=== PATIENT | female | born 1980 | race Caucasian/White ===

== ENCOUNTER 2020-12-15 12:27 | Emergency (ER) | payer MEDICAID, SELFPAY ==
[2020-12-15 12:55] VITALS: BP 120/60; BP 120/85; PULSE 60; PULSE 65; RESP 12; TEMP 36.3; O2SAT 100; BMI 21.7
--- NOTE | 2020-12-15 13:05 | PC.NURSE ---
pt camilo zamora
--- NOTE | 2020-12-15 14:35 | ED_ITS ---
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 Pain radiates to low back. Started menses last evening. not sexually active, s/p tubal ligation. +anxiety, ran out of all her medications, feels panicky. Related Data Previous Rx's Medication Instructions Recorded ondansetron 4 mg PO Q6H PRN #10 tab 12/15/20 Allergies Allergy/AdvReac Type Severity Reaction Status Date / Time ibuprofen Allergy Hives Verified 12/15/20 13:00 Review of Systems Review of Systems Yes all other systems are reviewed and are negative Constitutional: Reports no additional constitutional complaints, Denies body ache(s), Denies chills, Denies fever(s), Denies headache(s) and Denies weakness Eyes: Reports no additional eye complaints and Denies change in vision Reports system reviewed and no additional complaints, except as documented, Denies dizziness, Denies headache(s), Denies nasal congestion, Denies nasal discharge and Denies neck pain Cardiovascular: Reports no additional cardiovascular complaints, Denies chest pain, Denies leg edema and Denies dyspnea Respiratory: Reports no additional respiratory complaints, Denies cough and Denies dyspnea Gastrointestinal: Reports no additional gastrointestinal complaints, Reports abdominal pain, Reports diarrhea, Reports nausea and Reports vomiting Genitourinary: Reports no additional female genitourinary complaints and Denies urinary incontinence Musculoskeletal: Reports no additional musculoskeletal complaints, Denies back pain, Denies arthralgias, Denies joint swelling, Denies neck pain, Denies numbness and Denies tingling Skin/Breast: Reports system reviewed and no additional complaints, except as docu and Denies rash Reports system reviewed and no additional complaints, except as documented, Denies Abnormal speech present, Denies dizziness, Denies headache(s), Denies numbness, Denies tingling and Denies weakness Physical Exam Vital Signs: Vital Signs: Last Vital Signs Temp 97.4 F 12/15/20 20:00 Pulse 67 12/15/20 20:00 Resp 15 12/15/20 20:00 BP 101/48 L 05/04/21 20:00 Pulse Ox 100 12/15/20 20:00 Body Mass Index 21.7 Const: Other: ++++anxious, rocking back and forth, tearful General: cooperative and anxious Orientation/consciousness: patient oriented x3 Limitations: no limitations HENMT: Head: Yes normal to inspection Ears: hearing grossly normal bilaterally General nose exam: Normal external nose present Face and sinus: Yes normal facial exam Mouth: Normal oral and palatal mucosa present Throat: Yes posterior oropharynx normal Eyes: General: appearance normal, both eyes and all related structures Pupi ls: Equal, round and reactive pupils present Neck: Neck: Yes normal visual inspection Chest: Chest palpation & inspection: normal inspection of the chest Resp: Effort & Inspection: normal respiratory effort Auscultation: clear to auscultation bilaterally Cardio: Rate: regular rate Rhythm: regular rhythm Peripheral pulses: Peripheral pulses 2+ throughout GI: Inspection: Yes normal to inspection Palpation (GI): Soft to palpation and Tenderness to palpation present (GI) (mild diffuse tenderness, no rebound or guarding ) Auscultation: normal bowel sounds Back/Spine/Pelvis: Thoracic/Lumbar Spine: thoracic and lumbar spine normal to inspection Skin: General skin exam: no rashes or lesions noted Neuro: General: patient oriented x3, no focal motor deficits and normal sen sation to monofilament Cranial nerves: Yes Equal, round and reactive pupils present Cognition (Neuro): normal cognition Speech: No Abnormal speech present Gait exam (Neuro): Normal gait present Motor exam (neuro): 5/5 motor strength present throughout Extrem: General: Yes normal to inspection Course Course Course Narrative: 40yo female here with abdominal pain, vomiting, diarrhea since last evening with severe anxiety (ran out of all her medications). On exam has mild diffuse tenderness with no rebound or guarding. HD stable. Will need labs, UA, PIV, NSB, antiemetic and lorazepam. 1800-labs reviewed and unremarkable. Patient is feeling much improved. Denies any pain or nausea. Drinking mack rina with no issues. She refused to give a urine sample while she was here. Plan for discharge home. Reviewed worrisome signs symptoms when to return to the emergency department. Comfortable discharge home. MDM - Abdominal Pain Differential Diagnosis Differential diagnosis: Likely gastroenteritis, gastritis and pancreatitis Medical Records Attestation: I reviewed the patient's medical records. Lab Data Attestation: I reviewed the patient's lab results. Result diagrams: 12/15/20 15:29 12/15/20 15:29 Labs: Lab Results 12/15/20 12/15/20 12/15/20 Range/Units 15:29 15:29 19:00 WBC 8.4 (4.8-10.8) X10*3/uL RBC 4.13 L (4.20-5.50) X10*6/uL Hgb 13.1 (12.0-16.0) g/dl Hct 39.6 (37-47) % MCV 95.9 (80-98) fL MCH 31.7 (27.0-33.0) pg MCHC 33.1 (31.0-35.0) g/dl RDW 12.9 (11.0-16.0) % Plt Count 288 (160-400) X10*3/uL MPV 9.2 L (9.4-12.3) fL Immature Gran % (Auto) 0.4 (0.0-0.4) % Neut % (Auto) 90.7 H (45-73) % Lymph % (Auto) 7.5 L (20-40) % [place] % (Auto) 1.3 L (2-11) % Eos % (Auto) 0.0 (0-4) % Baso % (Auto) 0.1 (0-2) % Lymph # (Auto) 0.6 L (1.2-4.9) X10*3/uL [place] # (Auto) 0.1 (0.1-1.2) X10*3/uL Eos # (Auto) 0.0 (0.0-0.4) X10*3/uL Baso # (Auto) 0.0 (0.0-0.2) X10*3/uL Abs Immat Gran (auto) 0.03 (0.00-0.03) X10*3/uL Absolute Neuts (auto) 7.6 (2.0-8.3) X10*3/uL Absolute Nucleated RBC 0.000 (0.0-0.012) X10*3/uL Nucleated RBC % (auto) 0.0 (0.0-0.2) /100WBC Smear Tech's Comments VERIFIED Sodium 139 (135-145) mmol/L Potassium 3.6 (3.3-5.1) mmol/L Chloride 105 (96-108) mmol/L Carbon Dioxide 22 (22-29) mmol/L Anion Gap 16 (12-20) BUN 6 L (9-16) mg/dL Creatinine 0.65 (0.5-1.4) mg/dL Estim Creat Clear Calc 86.8 Estimated GFR > 60 Random Glucose 124 H (60-115) mg/dL Calcium 9.5 (8.4-10.2) mg/dL Magnesium 1.8 (1.6-2.6) mg/dL Total Bilirubin 0.5 (0.0-1.0) mg/dL Direct Bilirubin 0.2 (0.0-0.5) mg/dL AST 18 (5-31) U/L ALT 23 (0-31) U/L Alkaline Phosphatase 58 (39-117) U/L Total Protein 7.7 (6.5-8.0) g/dL Albumin 4.7 (3.5-5.0) g/dL Lipase 18 (8-78) U/L Urine Color YELLOW Urine Appearance CLEAR Urine pH 6.0 (5.0-8.0) Ur Specific [place] 1.025 (1.005-1.025) Urine Protein NEG (NEG-TRACE) MG/DL Urine Glucose (UA) NEG (NEG) MG/DL Urine Ketones 15 (NEG) MG/DL Urine Blood 3+ H (NEG) Urine Nitrite NEG (NEG) Ur Leukocyte Esterase NEG (NEG) Urine RBC 30-49 H (0) /HPF Urine WBC 0-2 (0-4) /HPF Ur Squamous Epith Cells 2+ /LPF Urine Bacteria NONE /LPF Urine Test (NEGATIVE) 12/15/20 Range/Units 19:00 WBC (4.8-10.8) X10*3/uL RBC (4.20-5.50) X10*6/uL Hgb (12.0-16.0) g/dl Hct (37-47) % MCV (80-98) fL MCH (27.0-33.0) pg MCHC (31.0-35.0) g/dl RDW (11.0-16.0) % Plt Count (160-400) X10*3/uL MPV (9.4-12.3) fL Immature Gran % (Auto) (0.0-0.4) % Neut % (Auto) (45-73) % Lymph % (Auto) (20-40) % [place] % (Auto) (2-11) % Eos % (Auto) (0-4) % Baso % (Auto) (0-2) % Lymph # (Auto) (1.2-4.9) X10*3/uL [place] # (Auto) (0.1-1.2) X10*3/uL Eos # (Auto) (0.0-0.4) X10*3/uL Baso # (Auto) (0.0-0.2) X10*3/uL Abs Immat Gran (auto) (0.00-0.03) X10*3/uL Absolute Neuts (auto) (2.0-8.3) X10*3/uL Absolute Nucleated RBC (0.0-0.012) X10*3/uL Nucleated RBC % (auto) (0.0-0.2) /100WBC Smear Tech's Comments Sodium (135-145) mmol/L Potassium (3.3-5.1) mmol/L Chloride (96-108) mmol/L Carbon Dioxide (22-29) mmol/L Anion Gap (12-20) BUN (9-16) mg/dL Creatinine (0.5-1.4) mg/dL Estim Creat Clear Calc Estimated GFR Random Glucose (60-115) mg/dL Calcium (8.4-10.2) mg/dL Magnesium (1.6-2.6) mg/dL Total Bilirubin (0.0-1.0) mg/dL Direct Bilirubin (0.0-0.5) mg/dL AST (5-31) U/L ALT (0-31) U/L Alkaline Phosphatase (39-117) U/L Total Protein (6.5-8.0) g/dL Albumin (3.5-5.0) g/dL Lipase (8-78) U/L Urine Color Urine Appearance Urine pH (5.0-8.0) Ur Specific [place] (1.005-1.025) Urine Protein (NEG-TRACE) MG/DL Urine Glucose (UA) (NEG) MG/DL Urine Ketones (NEG) MG/DL Urine Blood (NEG) Urine Nitrite (NEG) Ur Leukocyte Esterase (NEG) Urine RBC (0) /HPF Urine WBC (0-4) /HPF Ur Squamous Epith Cells /LPF Urine Bacteria /LPF Urine Test NEGATIVE (NEGATIVE) ECG Data Attestation: I personally reviewed and interpreted this ECG as follows: ECG interpretation date: 12/15/20 ECG interpretation time: 15:09 Interpretation: SB with rate 54, normal pr, normal qrs, normal qtc Discharge Plan Discharge Clinical Impression: Gastroenteritis Patient Disposition: Home, Self-Care Instructions: Gastroenteritis (ED) Additional Instructions: Start with clear liquids and then advance her diet as tolerated Prescriptions: New ondansetron 4 mg tablet,disintegrating 4 mg PO Q6H PRN (Reason: nausea and vomiting) Qty: 10 RF: 0 Referrals: Physician,Unknown [Primary Care Provider] - 2 days Interventions: ED Discharge Assessment Last Done: 12/15/20 20:29 Discharge Date/Time: 12/15/20 20:48 Print Language: Croatian [facility] Past Medical History Attestation statement: The following information was validated with the patient. Source: old records reviewed and nursing notes reviewed Medical History Anxiety Depression PTSD (post-traumatic stress disorder) Social History Social History Smoking Status: Current every day smoker Substance Use Type: Marijuana
--- NOTE | 2020-12-15 14:50 | ECG_ITS ---
Test Reason : PALPITATIONS Blood Pressure : / mmHG Vent. Rate : 054 BPM Atrial Rate : 054 BPM P-R Int : 118 ms QRS Dur : 072 ms QT Int : 428 ms P-R-T Axes : 042 078 069 degrees QTc Int : 405 ms Sinus bradycardia Otherwise normal ECG No previous ECGs available Referred By: Katheryn Lee Electronically Signed By:BERTRAND PADGETT
[2020-12-15] MEDS: 0.9 % Sodium Chloride 1,000 ML 999 ML IV (15:33)
[2020-12-15] MEDS: ondansetron HCL 4 MG/2 ML VIAL IVPUSH (15:34)
[2020-12-15] MEDS: LORazepam 2 MG/ML VIAL IVPUSH (15:34)
[2020-12-15] MEDS: Famotidine/PF 20 MG/2 ML VIAL IVPUSH (15:34)
[2020-12-15 15:46] LABS: Basophils Percent Auto 0.1 % (0-2); Hematocrit 39.6 % (37-47); Hemoglobin 13.1 g/dl (12.0-16.0); Imm Gran Abs Auto 0.03 X10*3/uL (0.00-0.03); Imm Gran Pct Auto 0.4 % (0.0-0.4); Lymphocytes Absolute Auto 0.6 X10*3/uL (1.2-4.9); Lymphocytes Percent Auto 7.5 % (20-40); MANUAL DIFF FLAG SCAN; Mean Corpuscular HGB Conc 33.1 g/dl (31.0-35.0); Mean Corpuscular Hemoglobin 31.7 pg (27.0-33.0); Mean Corpuscular Volume 95.9 fL (80-98); Mean Platelet Volume 9.2 fL (9.4-12.3); Monocytes Absolute Auto 0.1 X10*3/uL (0.1-1.2); Monocytes Percent Auto 1.3 % (2-11); Neutrophils Absolute Auto 7.6 X10*3/uL (2.0-8.3); Neutrophils Percent Auto 90.7 % (45-73); Platelet Count 288 X10*3/uL (160-400); Red Blood Count 4.13 X10*6/uL (4.20-5.50); Red Cell Distribution Width 12.9 % (11.0-16.0); SCAN SMEAR FLAG 1; White Blood Count 8.4 X10*3/uL (4.8-10.8)
[2020-12-15 16:17] LABS: Alanine Aminotransferase 23 U/L (0-31); Albumin Level 4.7 g/dL (3.5-5.0); Alkaline Phosphatase 58 U/L (39-117); Anion Gap 16 (12-20); Aspartate Amino Transferase 18 U/L (5-31); Bilirubin Direct 0.2 mg/dL (0.0-0.5); Bilirubin Total 0.5 mg/dL (0.0-1.0); Blood Urea Nitrogen 6 mg/dL (9-16); Calcium 9.5 mg/dL (8.4-10.2); Carbon Dioxide 22 mmol/L (22-29); Chloride 105 mmol/L (96-108); Creatinine Clr Calc Pharmacy 86.8; Estimated Glomerular Filt Rate > 60; Glucose Random 124 mg/dL (60-115); Lipase 18 U/L (8-78); Magnesium 1.8 mg/dL (1.6-2.6); Potassium 3.6 mmol/L (3.3-5.1); Sodium 139 mmol/L (135-145); Total Protein 7.7 g/dL (6.5-8.0)
[2020-12-15 16:25] LABS: SLIDE REVIEW VERIFIED
[2020-12-15] MEDS: Metoclopramide HCl 10 MG/2 ML VIAL IVPUSH (18:58)
[2020-12-15] MEDS: diphenhydrAMINE HCL 50 MG/ML VIAL 25 MG IVPUSH (18:58)
[2020-12-15 19:12] LABS: Glucose Urine UA NEG (NEG); Leukocyte Esterase Urine NEG (NEG); Nitrite Urine NEG (NEG); Specific Gravity - Urine 1.025 (1.005-1.025); Urine Blood 3+ (NEG); Urine Ketones 15 MG/DL (NEG); Urine Protein NEG (NEG-TRACE)
[2020-12-15 19:21] LABS: Appearance Urine CLEAR; Color Urine YELLOW
[2020-12-15 19:22] LABS: Urine Pregnancy NEGATIVE (NEGATIVE)
[2020-12-15 19:23] LABS: UPreg QC Valid YES
[2020-12-15 19:26] LABS: RBC Urine 30-49 /HPF (0); Squamous Epithelial Cell Urine 2+ /LPF; WBC Urine 0-2 /HPF (0-4)
[2020-12-15 20:00] VITALS: BP 101/48; PULSE 67; RESP 15; TEMP 36.3; O2SAT 100
[2020-12-15] MEDS: Magnesium Hydrox/Alum Hydrox 30 ML ORAL.SUSP PO (20:00)
[2020-12-15] MEDS: Lidocaine HCl Viscous 2 % 15 ML SOLUTION MUCOUS MEM (20:00)
--- NOTE | 2020-12-15 20:01 | PC.NURSE ---
Patient medicated with GI coctail late due to patient actively vomiting at time it was scheduled. Patient has not vomiting in approximately 1.5 hours and given per provider.
== END 2020-12-15 20:48 | disposition home or self-care (01) ==
PROVIDERS: Nurse Practitioner Family; Emergency Provider Emergency Medicine
DX: K52.9 Noninfective gastroenteritis and colitis, unspecified (principal); R11.10 Vomiting, unspecified; F41.9 Anxiety disorder, unspecified
CPT/HCPCS: 36415; 80053; 80076; 81001; 81025; 83690; 83735; 85025; 93005; 96361; 96374; 96375; 99284; J1200; J2060; J2405; J2765

== ENCOUNTER 2020-12-16 07:57 | Emergency (ER) | payer MEDICAID, SELFPAY ==
--- NOTE | ~2020-12-16 | US_ITS ---
EXAMINATION: US PELVIS ULTRASOUND CLINICAL INFORMATION: Right suprapubic pain. Age 40. LMP 12/15/2020 COMPARISON: None TECHNIQUE: Ultrasound of the pelvis is performed using both transabdominal and transvaginal transducers along with Doppler. Transvaginal imaging is performed due to inadequate visualization transabdominally. FINDINGS: Uterus: The uterus is anteverted and retroflexed and measures 9.2 x 3.6 x 4.6 cm. The double wall endometrial thickness is 8 mm. The uterus is smooth in contour and has normal myometrial echogenicity. No visible fibroid. There is some small nabothian cysts in the cervix. Adnexa: Both ovaries are visualized. There is normal color flow to the adnexa. There is bilateral low resistance arterial waveforms adnexa and presence of venous flow. There is no ovarian torsion. Right ovary measures 2.3 x 1.5 x 2.1 cm. Left ovary measures 2.8 x 2.3 x 2.4 cm. There is dominant follicle left ovary measuring under 2 cm. No adnexal mass. No pelvic ascites. US/US pelvic ovarian doppler IMPRESSION: 1. Uterus: Anteverted and retroflexed, unremarkable. 2. Adnexa: Unremarkable Doppler. No torsion. Dominant follicle left ovary under 2 cm. No pelvic ascites.
--- NOTE | ~2020-12-16 | US_ITS ---
EXAMINATION: US PELVIS ULTRASOUND CLINICAL INFORMATION: Right suprapubic pain. Age 40. LMP 12/15/2020 COMPARISON: None TECHNIQUE: Ultrasound of the pelvis is performed using both transabdominal and transvaginal transducers along with Doppler. Transvaginal imaging is performed due to inadequate visualization transabdominally. FINDINGS: Uterus: The uterus is anteverted and retroflexed and measures 9.2 x 3.6 x 4.6 cm. The double wall endometrial thickness is 8 mm. The uterus is smooth in contour and has normal myometrial echogenicity. No visible fibroid. There is some small nabothian cysts in the cervix. Adnexa: Both ovaries are visualized. There is normal color flow to the adnexa. There is bilateral low resistance arterial waveforms adnexa and presence of venous flow. There is no ovarian torsion. Right ovary measures 2.3 x 1.5 x 2.1 cm. Left ovary measures 2.8 x 2.3 x 2.4 cm. There is dominant follicle left ovary measuring under 2 cm. No adnexal mass. No pelvic ascites. US/US transvaginal IMPRESSION: 1. Uterus: Anteverted and retroflexed, unremarkable. 2. Adnexa: Unremarkable Doppler. No torsion. Dominant follicle left ovary under 2 cm. No pelvic ascites.
--- NOTE | ~2020-12-16 | US_ITS ---
EXAMINATION: US PELVIS ULTRASOUND CLINICAL INFORMATION: Right suprapubic pain. Age 40. LMP 12/15/2020 COMPARISON: None TECHNIQUE: Ultrasound of the pelvis is performed using both transabdominal and transvaginal transducers along with Doppler. Transvaginal imaging is performed due to inadequate visualization transabdominally. FINDINGS: Uterus: The uterus is anteverted and retroflexed and measures 9.2 x 3.6 x 4.6 cm. The double wall endometrial thickness is 8 mm. The uterus is smooth in contour and has normal myometrial echogenicity. No visible fibroid. There is some small nabothian cysts in the cervix. Adnexa: Both ovaries are visualized. There is normal color flow to the adnexa. There is bilateral low resistance arterial waveforms adnexa and presence of venous flow. There is no ovarian torsion. Right ovary measures 2.3 x 1.5 x 2.1 cm. Left ovary measures 2.8 x 2.3 x 2.4 cm. There is dominant follicle left ovary measuring under 2 cm. No adnexal mass. No pelvic ascites. US/US pelvic complete IMPRESSION: 1. Uterus: Anteverted and retroflexed, unremarkable. 2. Adnexa: Unremarkable Doppler. No torsion. Dominant follicle left ovary under 2 cm. No pelvic ascites.
[2020-12-16 08:10] VITALS: BP 91/71; PULSE 67; RESP 16; TEMP 36.9; O2SAT 97; BMI 28.3
[2020-12-16] MEDS: ondansetron HCL 4 MG/2 ML VIAL IVPUSH (10:08)
[2020-12-16] MEDS: 0.9 % Sodium Chloride 1,000 ML 999 ML IVCONT (10:08)
[2020-12-16 10:10] LABS: Basophils Percent Auto 0.1 % (0-2); MANUAL DIFF FLAG SCAN; Mean Corpuscular Volume 95.7 fL (80-98); PLT CLUMP 1; SCAN SMEAR FLAG 1
[2020-12-16 10:12] LABS: Eosinophils Percent Auto 0.1 % (0-4); Hematocrit 39.8 % (37-47); Hemoglobin 13.3 g/dl (12.0-16.0); Imm Gran Abs Auto 0.04 X10*3/uL (0.00-0.03); Imm Gran Pct Auto 0.4 % (0.0-0.4); Lymphocytes Absolute Auto 1.5 X10*3/uL (1.2-4.9); Lymphocytes Percent Auto 13.8 % (20-40); Mean Corpuscular HGB Conc 33.4 g/dl (31.0-35.0); Mean Platelet Volume 10.6 fL (9.4-12.3); Monocytes Absolute Auto 0.6 X10*3/uL (0.1-1.2); Monocytes Percent Auto 5.4 % (2-11); Neutrophils Absolute Auto 8.5 X10*3/uL (2.0-8.3); Neutrophils Percent Auto 80.2 % (45-73); Red Blood Count 4.16 X10*6/uL (4.20-5.50); Red Cell Distribution Width 13.2 % (11.0-16.0); White Blood Count 10.6 X10*3/uL (4.8-10.8)
[2020-12-16] MEDS: LORazepam 1 MG TABLET PO (10:30)
[2020-12-16 10:37] LABS: Platelet Count 223 X10*3/uL (160-400)
--- NOTE | 2020-12-16 10:56 | ED.NAVMDI ---
HPI - Nausea/Vomiting/Diarrhea General Chief complaint: Nausea/Vomiting/Diarrhea <LALITA Tian Last Filed: 12/16/20 12:44> Stated complaint: vomiting, abd pain <LALITA Tian Last Filed: 12/16/20 12:44> Time Seen by Provider: 12/16/20 08:19 <LALITA Tian Last Filed: 12/16/20 12:44> Source: patient <LALITA Tian Last Filed: 12/16/20 12:44> Mode of arrival: ambulatory <LALITA Tian Last Filed: 12/16/20 12:44> History of Present Illness HPI Narrative: 40-year-old female with a past medical history of anxiety, depression, PTSD, ovarian cysts, presenting to the ED complaining of diffuse abdominal pain, nausea, vomiting, diarrhea, and increased anxiety. Patient was seen and treated in the ED yesterday for similar complaints and diagnosed with gastroenteritis. Patient also reports vaginal bleeding, admits began menses a couple days ago. Denies being sexually active or having vaginal discharge. Denies fever, chills, hematemesis, bloody diarrhea, dysuria, recent antibiotic use or travel <LALITA Tian Last Filed: 12/16/20 12:44> MD elicited complaint: nausea, vomiting, diarrhea and abdominal pain <LALITA Tian Last Filed: 12/16/20 12:44> Related Data Home medications: Previous Rx's Medication Instructions Recorded ondansetron 4 mg PO Q6H PRN #10 tab 12/15/20 metoclopramide HCl [Reglan] 10 mg PO Q6H PRN #10 tab 12/16/20 metoclopramide HCl [Reglan] 10 mg PO Q6H PRN #10 tab 01/07/21 ondansetron 4 mg PO Q6H PRN #10 tab 01/07/21 sucralfate [Carafate] 1 g PO BID #20 tab 01/07/21 <LALITA Tian Last Filed: 12/16/20 12:44> Allergies/Adverse reactions: Allergies Allergy/AdvReac Type Severity Reaction Status Date / Time ibuprofen Allergy Hives Verified 12/15/20 13:00 <ALLITA Tian Last Filed: 12/16/20 12:44> Review of Systems Review of Systems: Constitutional: No Fever, No Chills, No Night Sweats Cardiovascular: No Chest Pain, No SOB, +Palpitations Respiratory: No Cough, No Sputum Gastrointestinal: + Nausea, + Vomiting, + Diarrhea, No Constipation, + Abdominal pain, No Hematochezia, No Melena Genitourinary: + irregular bleeding, No Dysuria, No Urinary Frequency, No Hematuria, No vaginal discharge, No Flank Pain Musculoskeletal: No joint pain, No Myalgias Skin: No Skin Lesions, No rash Neuro: No Weakness, No Numbness, No Paresthesias, No Headache <LALITA Tian - Last Filed: 12/16/20 12:44> Yes all other systems are reviewed and are negative <LALITA Tian - Last Filed: 12/16/20 12:44> [facility] Past Medical History Attestation statement: The following information was validated with the patient. <LALITA Tian - Last Filed: 12/16/20 12:44> Medical History: Medical History Anxiety delivery delivered Depression Gastritis PTSD (post-traumatic stress disorder) <LALITA Tian - Last Filed: 12/16/20 12:44> Social History Social History: Social History Alcohol intake: never Patient Tobacco Use Status: Current everyday Tobacco user Smoked in Last 30 Days: Yes Use of substances other than those prescribed or required for medical reasons: No Substance Use Type: Marijuana Advance Directives: Yes Advance Directives Information Provided: Yes Advance Directives on File: No Patient : No <LALITA Tian - Last Filed: 12/16/20 12:44> Physical Exam Vital Signs: Vital Signs: Last Vital Signs Temp 98.5 F 12/16/20 08:10 Pulse 63 12/16/20 11:18 Resp 18 12/16/20 11:18 BP 121/70 12/16/20 11:18 Pulse Ox 98 12/16/20 11:18 Body Mass Index 28.3 <LALITA Tian - Last Filed: 12/16/20 12:44> Vital Signs: Last Vital Signs Temp 98.5 F 12/16/20 08:10 Pulse 63 12/16/20 11:18 Resp 18 12/16/20 11:18 BP 121/70 12/16/20 11:18 Pulse Ox 98 12/16/20 11:18 Body Mass Index 28.3 <Ector Aguirre MD - Last Filed: 01/14/21 14:47> Const: Other: tearful <Arlette Loo PA - Last Filed: 12/16/20 12:44> General: cooperative, healthy appearing, no acute distress and anxious <Arlette Loo PA - Last Filed: 12/16/20 12:44> Orientation/consciousness: patient oriented x3 <Arlette Loo PA - Last Filed: 12/16/20 12:44> Limitations: no limitations <Arlette Loo PA - Last Filed: 12/16/20 12:44> HENMT: Head: Yes normal to inspection <Arlette Loo PA - Last Filed: 12/16/20 12:44> Ears: hearing grossly normal bilaterally <Arlette Loo PA - Last Filed: 12/16/20 12:44> General nose exam: Normal external nose present <Arlette Loo PA - Last Filed: 12/16/20 12:44> Face and sinus: Yes normal facial exam <Arlette Loo PA - Last Filed: 12/16/20 12:44> Eyes: General: appearance normal, both eyes and all related structures <Arlette Loo PA - Last Filed: 12/16/20 12:44> EOM: EOMs intact bilaterally <Arlette Loo PA - Last Filed: 12/16/20 12:44> Neck: Neck: Yes normal visual inspection and Yes no lymphadenopathy <Arlette Loo PA - Last Filed: 12/16/20 12:44> Resp: Effort & Inspection: normal respiratory effort <Arlette Loo PA - Last Filed: 12/16/20 12:44> Cardio: Rate: regular rate <Arlette Loo PA - Last Filed: 12/16/20 12:44> GI: Inspection: Yes normal to inspection <Arlette Loo PA - Last Filed: 12/16/20 12:44> Palpation (GI): Soft to palpation, Tenderness to palpation present (GI) suprapubicly (>R), no guarding and not rigid <LALITA Tian - Last Filed: 12/16/20 12:44> : General: Yes no CVA tenderness <LALITA Tian - Last Filed: 12/16/20 12:44> OB/external & speculum: Deferred OB/external & speculum exam <LALITA Tian - Last Filed: 12/16/20 12:44> Back/Spine/Pelvis: Back: no CVA tenderness <LALITA Tian Last Filed: 12/16/20 12:44> Skin: Rashes: no rashes <LALITA Tian - Last Filed: 12/16/20 12:44> Wounds: no wounds <LALITA Tian Last Filed: 12/16/20 12:44> Neuro: General: patient oriented x3 <LALITA Tian - Last Filed: 12/16/20 12:44> Gait exam (Neuro): Normal gait present <LALITA Tian Last Filed: 12/16/20 12:44> Extrem: General: Yes normal to inspection <LALITA Tian Last Filed: 12/16/20 12:44> Course Course Course Narrative: -no leukocytosis. CMP hemolyzed US pelvic complete IMPRESSION: 1. Uterus: Anteverted and retroflexed, unremarkable. 2. Adnexa: Unremarkable Doppler. No torsion. Dominant follicle left ovary under 2 cm. No pelvic ascites. -daughter at bedside reports patient with similar menstrual cramps/sx in the past. Patient tolerated full cup of water in the ED without difficulty/nausea or vomiting, is currently talking on the phone with boyfriend laughing. -1230--potassium low at 3.1 > p.o. repletion ordered, labs otherwise reassuring. Results discussed with patient including worrisome signs and symptoms and strict return precautions. Patient requesting to shower. Discussed the need to stay hydrated at home and have close PCP follow-up <LALITA Tian - Last Filed: 12/16/20 12:44> I have reviewed the chart <Ector Aguirre MD - Last Filed: 01/14/21 14:47> MDM - Nausea/Vomiting/Diarrhea MDM Narrative Medical decision making narrative: 40-year-old female with a past medical history of anxiety, depression, PTSD, ovarian cysts, presenting to the ED complaining of diffuse abdominal pain, nausea, vomiting, diarrhea, and increased anxiety. Patient also reports vaginal bleeding, currently on menses. Patient was seen and treated in the ED yesterday for similar complaints diagnosed with gastroenteritis, is now presenting to ED with daughter that has similar complaints. This is likely continuous gastroenteritis/food poisoning, however patient with more localized suprapubic/right-sided suprapubic tenderness. Concern for menstrual cramping/ovarian cyst/torsion vs UTI. Lower concern for appendicitis secondary location of tenderness/other confounding symptoms and daughter same symptoms. Unlikely diverticulitis or renal stone Plan: Labs, UA, pelvic ultrasound, IVF, symptomatic treatment, reassess <LALITA Tian - Last Filed: 12/16/20 12:44> Medical Records Attestation: I reviewed the patient's medical records. <LALITA Tian - Last Filed: 12/16/20 12:44> Lab Data Attestation: I reviewed the patient's lab results. <LALITA Tian - Last Filed: 12/16/20 12:44> Result diagrams: : 12/16/20 10:03 12/16/20 11:10 <LALITA Tian - Last Filed: 12/16/20 12:44> Labs: Lab Results 12/16/20 12/16/20 12/16/20 Range/Units 10:03 10:03 11:10 WBC 10.6 (4.8-10.8) X10*3/uL RBC 4.16 L (4.20-5.50) X10*6/uL Hgb 13.3 (12.0-16.0) g/dl Hct 39.8 (37-47) % MCV 95.7 (80-98) fL MCH 32.0 (27.0-33.0) pg MCHC 33.4 (31.0-35.0) g/dl RDW 13.2 (11.0-16.0) % Plt Count 223 (160-400) X10*3/uL MPV 10.6 (9.4-12.3) fL Immature Gran % (Auto) 0.4 (0.0-0.4) % Neut % (Auto) 80.2 H (45-73) % Lymph % (Auto) 13.8 L (20-40) % Sherman % (Auto) 5.4 (2-11) % Eos % (Auto) 0.1 (0-4) % Baso % (Auto) 0.1 (0-2) % Lymph # (Auto) 1.5 (1.2-4.9) X10*3/uL Sherman # (Auto) 0.6 (0.1-1.2) X10*3/uL Eos # (Auto) 0.0 (0.0-0.4) X10*3/uL Baso # (Auto) 0.0 (0.0-0.2) X10*3/uL Abs Immat Gran (auto) 0.04 H (0.00-0.03) X10*3/uL Absolute Neuts (auto) 8.5 H (2.0-8.3) X10*3/uL Absolute Nucleated RBC 0.000 (0.0-0.012) X10*3/uL Nucleated RBC % (auto) 0.0 (0.0-0.2) /100WBC Smear Tech's Comments VERIFIED Hold Blue Top SEE NOTE Sodium 138 (135-145) mmol/L Potassium 3.1 L (3.3-5.1) mmol/L Chloride 108 (96-108) mmol/L Carbon Dioxide 19 L (22-29) mmol/L Anion Gap 14 (12-20) BUN 5 L (9-16) mg/dL Creatinine 0.60 (0.5-1.4) mg/dL Estim Creat Clear Calc 109.9 Estimated GFR > 60 Random Glucose 98 (60-115) mg/dL Calcium 8.2 L D (8.4-10.2) mg/dL Magnesium 2.0 (1.6-2.6) mg/dL Total Bilirubin 0.5 (0.0-1.0) mg/dL Direct Bilirubin 0.2 (0.0-0.5) mg/dL AST 16 (5-31) U/L ALT 19 (0-31) U/L Alkaline Phosphatase 48 (39-117) U/L Total Protein 6.3 L (6.5-8.0) g/dL Albumin 3.9 (3.5-5.0) g/dL Lipase 21 (8-78) U/L Urine Color Urine Appearance Urine pH (5.0-8.0) Ur Specific [place] (1.005-1.025) Urine Protein (NEG-TRACE) MG/DL Urine Glucose (UA) (NEG) MG/DL Urine Ketones (NEG) MG/DL Urine Blood (NEG) Urine Nitrite (NEG) Ur Leukocyte Esterase (NEG) Urine RBC (0) /HPF Urine WBC (0-4) /HPF Ur Squamous Epith Cells /LPF Urine Bacteria /LPF Urine Mucus /LPF Urine Test (NEGATIVE) 12/16/20 12/16/20 Range/Units 11:37 11:37 WBC (4.8-10.8) X10*3/uL RBC (4.20-5.50) X10*6/uL Hgb (12.0-16.0) g/dl Hct (37-47) % MCV (80-98) fL MCH (27.0-33.0) pg MCHC (31.0-35.0) g/dl RDW (11.0-16.0) % Plt Count (160-400) X10*3/uL MPV (9.4-12.3) fL Immature Gran % (Auto) (0.0-0.4) % Neut % (Auto) (45-73) % Lymph % (Auto) (20-40) % Sherman % (Auto) (2-11) % Eos % (Auto) (0-4) % Baso % (Auto) (0-2) % Lymph # (Auto) (1.2-4.9) X10*3/uL Sherman # (Auto) (0.1-1.2) X10*3/uL Eos # (Auto) (0.0-0.4) X10*3/uL Baso # (Auto) (0.0-0.2) X10*3/uL Abs Immat Gran (auto) (0.00-0.03) X10*3/uL Absolute Neuts (auto) (2.0-8.3) X10*3/uL Absolute Nucleated RBC (0.0-0.012) X10*3/uL Nucleated RBC % (auto) (0.0-0.2) /100WBC Smear Tech's Comments Hold Blue Top Sodium (135-145) mmol/L Potassium (3.3-5.1) mmol/L Chloride (96-108) mmol/L Carbon Dioxide (22-29) mmol/L Anion Gap (12-20) BUN (9-16) mg/dL Creatinine (0.5-1.4) mg/dL Estim Creat Clear Calc Estimated GFR Random Glucose (60-115) mg/dL Calcium (8.4-10.2) mg/dL Magnesium (1.6-2.6) mg/dL Total Bilirubin (0.0-1.0) mg/dL Direct Bilirubin (0.0-0.5) mg/dL AST (5-31) U/L ALT (0-31) U/L Alkaline Phosphatase (39-117) U/L Total Protein (6.5-8.0) g/dL Albumin (3.5-5.0) g/dL Lipase (8-78) U/L Urine Color YELLOW Urine Appearance CLEAR Urine pH 7.5 (5.0-8.0) Ur Specific [place] 1.025 (1.005-1.025) Urine Protein NEG (NEG-TRACE) MG/DL Urine Glucose (UA) NEG (NEG) MG/DL Urine Ketones 40 (NEG) MG/DL Urine Blood 2+ H (NEG) Urine Nitrite NEG (NEG) Ur Leukocyte Esterase NEG (NEG) Urine RBC 10-14 H (0) /HPF Urine WBC 0 (0-4) /HPF Ur Squamous Epith Cells 1+ /LPF Urine Bacteria NONE /LPF Urine Mucus 2+ /LPF Urine Test NEGATIVE (NEGATIVE) <LALITA Tian - Last Filed: 12/16/20 12:44> Lab Results 12/16/20 12/16/20 12/16/20 Range/Units 10:03 10:03 11:10 WBC 10.6 (4.8-10.8) X10*3/uL RBC 4.16 L (4.20-5.50) X10*6/uL Hgb 13.3 (12.0-16.0) g/dl Hct 39.8 (37-47) % MCV 95.7 (80-98) fL MCH 32.0 (27.0-33.0) pg MCHC 33.4 (31.0-35.0) g/dl RDW 13.2 (11.0-16.0) % Plt Count 223 (160-400) X10*3/uL MPV 10.6 (9.4-12.3) fL Immature Gran % (Auto) 0.4 (0.0-0.4) % Neut % (Auto) 80.2 H (45-73) % Lymph % (Auto) 13.8 L (20-40) % Sherman % (Auto) 5.4 (2-11) % Eos % (Auto) 0.1 (0-4) % Baso % (Auto) 0.1 (0-2) % Lymph # (Auto) 1.5 (1.2-4.9) X10*3/uL Sherman # (Auto) 0.6 (0.1-1.2) X10*3/uL Eos # (Auto) 0.0 (0.0-0.4) X10*3/uL Baso # (Auto) 0.0 (0.0-0.2) X10*3/uL Abs Immat Gran (auto) 0.04 H (0.00-0.03) X10*3/uL Absolute Neuts (auto) 8.5 H (2.0-8.3) X10*3/uL Absolute Nucleated RBC 0.000 (0.0-0.012) X10*3/uL Nucleated RBC % (auto) 0.0 (0.0-0.2) /100WBC Smear Tech's Comments VERIFIED Hold Blue Top SEE NOTE Sodium 138 (135-145) mmol/L Potassium 3.1 L (3.3-5.1) mmol/L Chloride 108 (96-108) mmol/L Carbon Dioxide 19 L (22-29) mmol/L Anion Gap 14 (12-20) BUN 5 L (9-16) mg/dL Creatinine 0.60 (0.5-1.4) mg/dL Estim Creat Clear Calc 109.9 Estimated GFR > 60 Random Glucose 98 (60-115) mg/dL Calcium 8.2 L D (8.4-10.2) mg/dL Magnesium 2.0 (1.6-2.6) mg/dL Total Bilirubin 0.5 (0.0-1.0) mg/dL Direct Bilirubin 0.2 (0.0-0.5) mg/dL AST 16 (5-31) U/L ALT 19 (0-31) U/L Alkaline Phosphatase 48 (39-117) U/L Total Protein 6.3 L (6.5-8.0) g/dL Albumin 3.9 (3.5-5.0) g/dL Lipase 21 (8-78) U/L Urine Color Urine Appearance Urine pH (5.0-8.0) Ur Specific [place] (1.005-1.025) Urine Protein (NEG-TRACE) MG/DL Urine Glucose (UA) (NEG) MG/DL Urine Ketones (NEG) MG/DL Urine Blood (NEG) Urine Nitrite (NEG) Ur Leukocyte Esterase (NEG) Urine RBC (0) /HPF Urine WBC (0-4) /HPF Ur Squamous Epith Cells /LPF Urine Bacteria /LPF Urine Mucus /LPF Urine Test (NEGATIVE) 12/16/20 12/16/20 Range/Units 11:37 11:37 WBC (4.8-10.8) X10*3/uL RBC (4.20-5.50) X10*6/uL Hgb (12.0-16.0) g/dl Hct (37-47) % MCV (80-98) fL MCH (27.0-33.0) pg MCHC (31.0-35.0) g/dl RDW (11.0-16.0) % Plt Count (160-400) X10*3/uL MPV (9.4-12.3) fL Immature Gran % (Auto) (0.0-0.4) % Neut % (Auto) (45-73) % Lymph % (Auto) (20-40) % Sherman % (Auto) (2-11) % Eos % (Auto) (0-4) % Baso % (Auto) (0-2) % Lymph # (Auto) (1.2-4.9) X10*3/uL Sherman # (Auto) (0.1-1.2) X10*3/uL Eos # (Auto) (0.0-0.4) X10*3/uL Baso # (Auto) (0.0-0.2) X10*3/uL Abs Immat Gran (auto) (0.00-0.03) X10*3/uL Absolute Neuts (auto) (2.0-8.3) X10*3/uL Absolute Nucleated RBC (0.0-0.012) X10*3/uL Nucleated RBC % (auto) (0.0-0.2) /100WBC Smear Tech's Comments Hold Blue Top Sodium (135-145) mmol/L Potassium (3.3-5.1) mmol/L Chloride (96-108) mmol/L Carbon Dioxide (22-29) mmol/L Anion Gap (12-20) BUN (9-16) mg/dL Creatinine (0.5-1.4) mg/dL Estim Creat Clear Calc Estimated GFR Random Glucose (60-115) mg/dL Calcium (8.4-10.2) mg/dL Magnesium (1.6-2.6) mg/dL Total Bilirubin (0.0-1.0) mg/dL Direct Bilirubin (0.0-0.5) mg/dL AST (5-31) U/L ALT (0-31) U/L Alkaline Phosphatase (39-117) U/L Total Protein (6.5-8.0) g/dL Albumin (3.5-5.0) g/dL Lipase (8-78) U/L Urine Color YELLOW Urine Appearance CLEAR Urine pH 7.5 (5.0-8.0) Ur Specific [place] 1.025 (1.005-1.025) Urine Protein NEG (NEG-TRACE) MG/DL Urine Glucose (UA) NEG (NEG) MG/DL Urine Ketones 40 (NEG) MG/DL Urine Blood 2+ H (NEG) Urine Nitrite NEG (NEG) Ur Leukocyte Esterase NEG (NEG) Urine RBC 10-14 H (0) /HPF Urine WBC 0 (0-4) /HPF Ur Squamous Epith Cells 1+ /LPF Urine Bacteria NONE /LPF Urine Mucus 2+ /LPF Urine Test NEGATIVE (NEGATIVE) <Ector Aguirre MD - Last Filed: 01/14/21 14:47> Discharge Plan Discharge Clinical Impression: Gastroenteritis, Menstrual cramps <LALITA Tian Last Filed: 12/16/20 12:44> Patient Disposition: Home, Self-Care <LALITA Tian Last Filed: 12/16/20 12:44> Instructions: Dysmenorrhea (ED) <LALITA Tian Last Filed: 12/16/20 12:44> Additional Instructions: Your blood work was reassuring today in the ED, your ultrasound did not show any acute findings. It is more in there staying hydrated at home. Evening continue to take previously prescribed Zofran which is in antinausea medication. If this is not working, Reglan as an additional antinausea medication, take as needed. Follow-up with your doctor. If you are unable to eat or drink, have fever, pain is persistent worsening please return to the ED Cook an?lisis de betty fue reconfortante hoy en el servicio de urgencias, cook ultrasonido no mostr? yolanda?n hallazgo sancho. Es m?s all? mantenerse hidratado en casa. Por la noche contin?e tomando Zofran previamente recetado, que se encuentra en un medicamento contra las n?useas. Si esto no funciona, Reglan griselda medicamento adicional contra las n?useas, t?morgan seg?n sea necesario. Jassi un seguimiento con cook m?dico. Si no puede comer o beber, tiene fiebre, el dolor es persistente y empeora, vuelva al servicio de urgencias. <LALITA Tian - Last Filed: 12/16/20 12:44> Prescriptions: New metoclopramide HCl [Reglan] 10 mg tablet 10 mg PO Q6H PRN (Reason: nausea and vomiting) Qty: 10 RF: 0 No Action ondansetron 4 mg tablet,disintegrating 4 mg PO Q6H PRN (Reason: nausea and vomiting) Qty: 10 RF: 0 ondansetron 4 mg tablet,disintegrating 4 mg PO Q6H PRN (Reason: nausea and vomiting) Qty: 10 RF: 0 metoclopramide HCl [Reglan] 10 mg tablet 10 mg PO Q6H PRN (Reason: nausea and vomiting) Qty: 10 RF: 0 sucralfate [Carafate] 1 gram tablet 1 g PO BID Qty: 20 RF: 0 <LALITA Tian - Last Filed: 12/16/20 12:44> Referrals: [place] [Primary Care Provider] - 2 days <LALITA Tian - Last Filed: 12/16/20 12:44> Interventions: ED Discharge Assessment Last Done: 12/16/20 13:16 <LALITA Tian - Last Filed: 12/16/20 12:44> Discharge Date/Time: 12/16/20 13:18 <LALITA Tian - Last Filed: 12/16/20 12:44> Print Language: Lao <LALITA Tian - Last Filed: 12/16/20 12:44>
[2020-12-16 10:59] LABS: SLIDE REVIEW VERIFIED
[2020-12-16 11:18] VITALS: BP 121/70; PULSE 63; RESP 18; O2SAT 98
[2020-12-16] MEDS: diphenhydrAMINE HCL 50 MG/ML VIAL 25 MG IVPUSH (11:29)
[2020-12-16] MEDS: LORazepam 2 MG/ML VIAL 0.5 MG IVPUSH (11:29)
[2020-12-16] MEDS: Acetaminophen 325 MG TABLET 650 MG PO (11:29)
--- NOTE | 2020-12-16 11:34 | PC.NURSE ---
NO VOMITING NOTED. UP TO BR, URINE OBTAINED. LAUGHING ON PHONE WITH BF.
[2020-12-16 11:45] LABS: Alanine Aminotransferase 19 U/L (0-31); Albumin Level 3.9 g/dL (3.5-5.0); Alkaline Phosphatase 48 U/L (39-117); Anion Gap 14 (12-20); Aspartate Amino Transferase 16 U/L (5-31); Bilirubin Direct 0.2 mg/dL (0.0-0.5); Bilirubin Total 0.5 mg/dL (0.0-1.0); Blood Urea Nitrogen 5 mg/dL (9-16); Calcium 8.2 mg/dL (8.4-10.2); Carbon Dioxide 19 mmol/L (22-29); Chloride 108 mmol/L (96-108); Creatinine Clr Calc Pharmacy 109.9; Estimated Glomerular Filt Rate > 60; Glucose Random 98 mg/dL (60-115); Lipase 21 U/L (8-78); Potassium 3.1 mmol/L (3.3-5.1); Sodium 138 mmol/L (135-145); Total Protein 6.3 g/dL (6.5-8.0)
[2020-12-16 11:46] LABS: Glucose Urine UA NEG (NEG); Leukocyte Esterase Urine NEG (NEG); Nitrite Urine NEG (NEG); PH 7.5 (5.0-8.0); Specific Gravity - Urine 1.025 (1.005-1.025); Urine Blood 2+ (NEG); Urine Ketones 40 MG/DL (NEG); Urine Protein NEG (NEG-TRACE)
[2020-12-16 11:47] LABS: Appearance Urine CLEAR; Color Urine YELLOW
[2020-12-16 11:48] LABS: UPreg QC Valid YES; Urine Pregnancy NEGATIVE (NEGATIVE)
[2020-12-16 11:57] LABS: Mucus Urine 2+ /LPF; Squamous Epithelial Cell Urine 1+ /LPF; WBC Urine 0 /HPF (0-4)
== END 2020-12-16 13:18 | disposition home or self-care (01) ==
PROVIDERS: Physician Assistant; Emergency Provider Emergency Medicine
DX: K52.9 Noninfective gastroenteritis and colitis, unspecified (principal); N94.6 Dysmenorrhea, unspecified; F17.200 Nicotine dependence, unspecified, uncomplicated; F12.90 Cannabis use, unspecified, uncomplicated
CPT/HCPCS: 36415; 76830; 76856; 80048; 80076; 81001; 81025; 83690; 83735; 85025; 93975; 96361; 96374; 96375; 99283; 99284; J1200; J2060; J2405

== ENCOUNTER 2021-01-07 10:55 | Emergency (ER) | payer MEDICAID, SELFPAY ==
[2021-01-07 10:57] VITALS: BP 120/66; PULSE 74; RESP 20; TEMP 36.4; O2SAT 100; BMI 22.4
--- NOTE | 2021-01-07 11:10 | ECG_ITS ---
Test Reason : ABDOMINAL PAIN Blood Pressure : / mmHG Vent. Rate : 070 BPM Atrial Rate : 070 BPM P-R Int : 108 ms QRS Dur : 070 ms QT Int : 414 ms P-R-T Axes : 089 073 057 degrees QTc Int : 447 ms Sinus rhythm with sinus arrhythmia with short FL Otherwise normal ECG When compared with ECG of 15-DEC-2020 15:09, No significant change was found Referred By: Katheryn Lee Electronically Signed By:
--- NOTE | 2021-01-07 11:11 | ED.ABDPAIN ---
HPI - Abdominal Pain General Chief Complaint: Abdominal Pain Stated Complaint: gastritis? 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 Of note, seen for same on December 15, December 16. Discharged home with donald sears. Followed up at [facility] and was prescribed Protonix 40 mg daily and has an upcoming appointment with a sheet folder. Related Data Previous Rx's Medication Instructions Recorded ondansetron 4 mg PO Q6H PRN #10 tab 12/15/20 metoclopramide HCl [Reglan] 10 mg PO Q6H PRN #10 tab 12/16/20 metoclopramide HCl [Reglan] 10 mg PO Q6H PRN #10 tab 01/07/21 ondansetron 4 mg PO Q6H PRN #10 tab 01/07/21 sucralfate [Carafate] 1 g PO BID #20 tab 01/07/21 Allergies Allergy/AdvReac Type Severity Reaction Status Date / Time ibuprofen Allergy Hives Verified 12/15/20 13:00 Review of Systems Review of Systems Yes all other systems are reviewed and are negative Constitutional: Reports no additional constitutional complaints, Denies body ache(s), Denies chills, Denies fever(s), Denies headache(s) and Denies weakness Eyes: Reports no additional eye complaints and Denies change in vision Reports system reviewed and no additional complaints, except as documented, Denies dizziness, Denies headache(s), Denies nasal congestion, Denies nasal discharge and Denies neck pain Cardiovascular: Reports no additional cardiovascular complaints, Denies chest pain, Denies leg edema and Denies dyspnea Respiratory: Reports no additional respiratory complaints, Denies cough and Denies dyspnea Gastrointestinal: Reports no additional gastrointestinal complaints, Reports abdominal pain, Reports diarrhea, Reports nausea and Reports vomiting Genitourinary: Reports no additional female genitourinary complaints and Denies urinary incontinence Musculoskeletal: Reports no additional musculoskeletal complaints, Denies back pain, Denies arthralgias, Denies joint swelling, Denies neck pain, Denies numbness and Denies tingling Skin/Breast: Reports system reviewed and no additional complaints, except as docu and Denies rash Reports system reviewed and no additional complaints, except as documented, Denies Abnormal speech present, Denies dizziness, Denies headache(s), Denies numbness, Denies tingling and Denies weakness Physical Exam Vital Signs: Vital Signs: Last Vital Signs Temp 97.5 F 01/07/21 10:57 Pulse 79 01/07/21 14:34 Resp 16 01/07/21 14:34 BP 122/63 01/07/21 14:34 Pulse Ox 100 01/07/21 14:34 Body Mass Index 22.4 Const: Other: +ANXIOUS General: cooperative, healthy appearing, comfortable and no acute distress Orientation/consciousness: patient oriented x3 Limitations: no limitations HENMT: Head: Yes normal to inspection Ears: hearing grossly normal bilaterally General nose exam: Normal external nose present Face and sinus: Yes normal facial exam Mouth: Normal oral and palatal mucosa present Throat: Yes posterior oropharynx normal Eyes: General: appearance normal, both eyes and all related structures Pupils: Equal, round and reactive pupils present Neck: Neck: Yes normal visual inspection Chest: Chest palpation & inspection: normal inspection of the chest Resp: Effort & Inspection: normal respiratory effort Auscultation: clear to auscultation bilaterally Cardio: Rate: regular rate Rhythm: regular rhythm Peripheral pulses: Peripheral pulses 2+ throughout GI: Inspection: Yes normal to inspection Palpation (GI): Soft to palpation and Tenderness to palpation present (GI) (Mild diffuse tenderness no rebound or guarding) Auscultation: normal bowel sounds Back/Spine/Pelvis: Thoracic/Lumbar Spine: thoracic and lumbar spine normal to inspection Skin: General skin exam: no rashes or lesions noted Neuro: General: patient oriented x3, no focal motor deficits and normal sensation to monofilament Cranial nerves: Yes Equal, round and reactive pupils present Cognition (Neuro): normal cognition Speech: No Abnormal speech present Gait exam (Neuro): Normal gait present Motor exam (neuro): 5/5 motor strength present throughout Extrem: General: Yes normal to inspection Course Course Course Narrative: 40-year-old female here with generalized abdominal pain, vomiting, diarrhea since last evening. No focal tenderness. Multiple ED visits for same. Will need labs, UA, PIV w/ NSB/antiemetic/PPI. 1720-Labs unremarkable. 80 ketones in urine c/w with mild dehydration. Pt received 2 L NS. Continued epigastric pain and nausea. Will attempt GI cocktail. Patient declined this. Offered additional IV antiemetics the patient declined this and would like to be discharged home. Patient did drink some mack rina and discharge. Reviewed worrisome signs and symptoms and when to return to the emergency department. Comfortable discharge home. MDM - Abdominal Pain MDM Narrative Medical decision making narrative: Less likely appendicitis with no focal abdominal pain, no leukocytosis or shift Differential Diagnosis Differential diagnosis: Likely gastroenteritis and gastritis Medical Records Attestation: I reviewed the patient's medical records. Lab Data Attestation: I reviewed the patient's lab results. Result diagrams: 01/07/21 11:33 01/07/21 11:33 Labs: Lab Results 01/07/21 01/07/21 01/07/21 Range/Units 11:33 11:33 11:37 WBC 6.9 (4.8-10.8) X10*3/uL RBC 4.09 L (4.20-5.50) X10*6/uL Hgb 13.1 (12.0-16.0) g/dl Hct 39.2 (37-47) % MCV 95.8 (80-98) fL MCH 32.0 (27.0-33.0) pg MCHC 33.4 (31.0-35.0) g/dl RDW 13.4 (11.0-16.0) % Plt Count 319 D (160-400) X10*3/uL MPV 9.0 L (9.4-12.3) fL Immature Gran % (Auto) 0.4 (0.0-0.4) % Neut % (Auto) 89.5 H (45-73) % Lymph % (Auto) 8.3 L (20-40) % Johnston % (Auto) 1.7 L (2-11) % Eos % (Auto) 0.0 (0-4) % Baso % (Auto) 0.1 (0-2) % Lymph # (Auto) 0.6 L (1.2-4.9) X10*3/uL Johnston # (Auto) 0.1 (0.1-1.2) X10*3/uL Eos # (Auto) 0.0 (0.0-0.4) X10*3/uL Baso # (Auto) 0.0 (0.0-0.2) X10*3/uL Abs Immat Gran (auto) 0.03 (0.00-0.03) X10*3/uL Absolute Neuts (auto) 6.2 (2.0-8.3) X10*3/uL Absolute Nucleated RBC 0.000 (0.0-0.012) X10*3/uL Nucleated RBC % (auto) 0.0 (0.0-0.2) /100WBC Smear Tech's Comments VERIFIED Sodium 136 (135-145) mmol/L Potassium 3.6 (3.3-5.1) mmol/L Chloride 101 (96-108) mmol/L Carbon Dioxide 20 L (22-29) mmol/L Anion Gap 19 (12-20) BUN 6 L (9-16) mg/dL Creatinine 0.65 (0.5-1.4) mg/dL Estim Creat Clear Calc 86.8 Estimated GFR > 60 Random Glucose 130 H (60-115) mg/dL Calcium 9.6 D (8.4-10.2) mg/dL Magnesium 2.0 (1.6-2.6) mg/dL Total Bilirubin 0.6 (0.0-1.0) mg/dL Direct Bilirubin 0.3 (0.0-0.5) mg/dL AST 19 (5-31) U/L ALT 31 (0-31) U/L Alkaline Phosphatase 59 D (39-117) U/L Total Protein 7.8 D (6.5-8.0) g/dL Albumin 4.7 D (3.5-5.0) g/dL Urine Color Urine Appearance Urine pH (5.0-8.0) Ur Specific [place] (1.005-1.025) Urine Protein (NEG-TRACE) MG/DL Urine Glucose (UA) (NEG) MG/DL Urine Ketones (NEG) MG/DL Urine Blood (NEG) Urine Nitrite (NEG) Ur Leukocyte Esterase (NEG) Urine RBC (0) /HPF Urine WBC (0-4) /HPF Ur Squamous Epith Cells /LPF Urine Bacteria /LPF Urine Test (NEGATIVE) COVID-19 ([facility]) Negative (Negative) COVID-19 Clin Com See Note 01/07/21 01/07/21 Range/Units 13:58 13:58 WBC (4.8-10.8) X10*3/uL RBC (4.20-5.50) X10*6/uL Hgb (12.0-16.0) g/dl Hct (37-47) % MCV (80-98) fL MCH (27.0-33.0) pg MCHC (31.0-35.0) g/dl RDW (11.0-16.0) % Plt Count (160-400) X10*3/uL MPV (9.4-12.3) fL Immature Gran % (Auto) (0.0-0.4) % Neut % (Auto) (45-73) % Lymph % (Auto) (20-40) % Johnston % (Auto) (2-11) % Eos % (Auto) (0-4) % Baso % (Auto) (0-2) % Lymph # (Auto) (1.2-4.9) X10*3/uL Johnston # (Auto) (0.1-1.2) X10*3/uL Eos # (Auto) (0.0-0.4) X10*3/uL Baso # (Auto) (0.0-0.2) X10*3/uL Abs Immat Gran (auto) (0.00-0.03) X10*3/uL Absolute Neuts (auto) (2.0-8.3) X10*3/uL Absolute Nucleated RBC (0.0-0.012) X10*3/uL Nucleated RBC % (auto) (0.0-0.2) /100WBC Smear Tech's Comments Sodium (135-145) mmol/L Potassium (3.3-5.1) mmol/L Chloride (96-108) mmol/L Carbon Dioxide (22-29) mmol/L Anion Gap (12-20) BUN (9-16) mg/dL Creatinine (0.5-1.4) mg/dL Estim Creat Clear Calc Estimated GFR Random Glucose (60-115) mg/dL Calcium (8.4-10.2) mg/dL Magnesium (1.6-2.6) mg/dL Total Bilirubin (0.0-1.0) mg/dL Direct Bilirubin (0.0-0.5) mg/dL AST (5-31) U/L ALT (0-31) U/L Alkaline Phosphatase (39-117) U/L Total Protein (6.5-8.0) g/dL Albumin (3.5-5.0) g/dL Urine Color YELLOW Urine Appearance HAZY Urine pH 6.0 (5.0-8.0) Ur Specific [place] >= 1.030 H (1.005-1.025) Urine Protein TRACE (NEG-TRACE) MG/DL Urine Glucose (UA) NEG (NEG) MG/DL Urine Ketones >=80 (NEG) MG/DL Urine Blood 2+ H (NEG) Urine Nitrite NEG (NEG) Ur Leukocyte Esterase NEG (NEG) Urine RBC 10-14 H (0) /HPF Urine WBC 0-2 (0-4) /HPF Ur Squamous Epith Cells 3+ /LPF Urine Bacteria 1+ /LPF Urine Test NEGATIVE (NEGATIVE) COVID-19 ([facility]) (Negative) COVID-19 Clin Com ECG Data Attestation: I personally reviewed and interpreted this ECG as follows: ECG interpretation date: 01/07/21 ECG interpretation time: 12:25 Interpretation: Normal sinus rhythm with a rate of 63, normal ID, normal QRS, normal QTC Discharge Plan Discharge Clinical Impression: Gastritis Qualifiers: Gastritis type: unspecified gastritis Chronicity: acute Gastritis bleeding: without bleeding Qualified Code(s): K29.00 - Acute gastritis without bleeding Patient Disposition: Home, Self-Care Instructions: Gastritis (ED) Additional Instructions: bland diet then advance diet as tolerated Continue protonix follow-up with GI Prescriptions: New ondansetron 4 mg tablet,disintegrating 4 mg PO Q6H PRN (Reason: nausea and vomiting) Qty: 10 RF: 0 metoclopramide HCl [Reglan] 10 mg tablet 10 mg PO Q6H PRN (Reason: nausea and vomiting) Qty: 10 RF: 0 sucralfate [Carafate] 1 gram tablet 1 g PO BID Qty: 20 RF: 0 No Action ondansetron 4 mg tablet,disintegrating 4 mg PO Q6H PRN (Reason: nausea and vomiting) Qty: 10 RF: 0 metoclopramide HCl [Reglan] 10 mg tablet 10 mg PO Q6H PRN (Reason: nausea and vomiting) Qty: 10 RF: 0 Referrals: Abbe Hargrove [Physician] - 2 days Interventions: ED Discharge Assessment Last Done: 01/07/21 17:39 Discharge Date/Time: 01/07/21 17:40 Print Language: [place] [facility] Past Medical History Attestation statement: The following information was validated with the patient. Source: old records reviewed and nursing notes reviewed Medical History Anxiety delivery delivered Depression Gastritis PTSD (post-traumatic stress disorder) Social History Social History Alcohol intake: never Patient Tobacco Use Status: Current everyday Tobacco user Smoked in Last 30 Days: Yes Use of substances other than those prescribed or required for medical reasons: No Substance Use Type: Marijuana Advance Directives: Yes Advance Directives Information Provided: Yes Advance Directives on File: No Patient : No
--- NOTE | 2021-01-07 11:15 | PC.NURSE ---
Pt comes to ER complaining of severe abdominal pain and vomiting. Pt has recently relocated to the area from [place] where she was treated for chronic abdominal pain and vomiting. Pt is moaning and rolling around in bed due to pain. pt has dry heaved x1 during assessment.
[2021-01-07 11:42] LABS: Basophils Percent Auto 0.1 % (0-2); Hematocrit 39.2 % (37-47); Hemoglobin 13.1 g/dl (12.0-16.0); Imm Gran Abs Auto 0.03 X10*3/uL (0.00-0.03); Imm Gran Pct Auto 0.4 % (0.0-0.4); Lymphocytes Absolute Auto 0.6 X10*3/uL (1.2-4.9); Lymphocytes Percent Auto 8.3 % (20-40); MANUAL DIFF FLAG SCAN; Mean Corpuscular HGB Conc 33.4 g/dl (31.0-35.0); Mean Corpuscular Volume 95.8 fL (80-98); Monocytes Absolute Auto 0.1 X10*3/uL (0.1-1.2); Monocytes Percent Auto 1.7 % (2-11); Neutrophils Absolute Auto 6.2 X10*3/uL (2.0-8.3); Neutrophils Percent Auto 89.5 % (45-73); Platelet Count 319 X10*3/uL (160-400); Red Blood Count 4.09 X10*6/uL (4.20-5.50); Red Cell Distribution Width 13.4 % (11.0-16.0); SCAN SMEAR FLAG 1; White Blood Count 6.9 X10*3/uL (4.8-10.8)
[2021-01-07] MEDS: 0.9 % Sodium Chloride 1,000 ML 999 ML IV ×2 (11:46→14:30)
[2021-01-07] MEDS: ondansetron HCL 4 MG/2 ML VIAL IVPUSH (11:46)
[2021-01-07] MEDS: LORazepam 2 MG/ML VIAL 1 MG IVPUSH (11:48)
[2021-01-07] MEDS: Famotidine/PF 20 MG/2 ML VIAL IVPUSH (11:51)
[2021-01-07 11:55] VITALS: BP 121/73; PULSE 58; RESP 16; O2SAT 100
[2021-01-07 12:08] LABS: Alanine Aminotransferase 31 U/L (0-31); Albumin Level 4.7 g/dL (3.5-5.0); Alkaline Phosphatase 59 U/L (39-117); Anion Gap 19 (12-20); Aspartate Amino Transferase 19 U/L (5-31); Bilirubin Direct 0.3 mg/dL (0.0-0.5); Bilirubin Total 0.6 mg/dL (0.0-1.0); Blood Urea Nitrogen 6 mg/dL (9-16); Calcium 9.6 mg/dL (8.4-10.2); Carbon Dioxide 20 mmol/L (22-29); Chloride 101 mmol/L (96-108); Creatinine Clr Calc Pharmacy 86.8; Estimated Glomerular Filt Rate > 60; Glucose Random 130 mg/dL (60-115); Potassium 3.6 mmol/L (3.3-5.1); Sodium 136 mmol/L (135-145); Total Protein 7.8 g/dL (6.5-8.0)
[2021-01-07 12:19] LABS: SLIDE REVIEW VERIFIED
[2021-01-07 12:20] VITALS: BP 133/91; PULSE 81; RESP 17; O2SAT 98
[2021-01-07 12:20] LABS: COVID-19 Test Negative (Negative); IDNOW Serial# 9DD0AD1C
[2021-01-07 14:08] LABS: Glucose Urine UA NEG (NEG); Leukocyte Esterase Urine NEG (NEG); Nitrite Urine NEG (NEG); Specific Gravity - Urine >= 1.030 (1.005-1.025); Urine Blood 2+ (NEG); Urine Ketones >=80 MG/DL (NEG); Urine Protein TRACE MG/DL (NEG-TRACE)
[2021-01-07 14:12] LABS: Appearance Urine HAZY; Color Urine YELLOW; UPreg QC Valid YES; Urine Pregnancy NEGATIVE (NEGATIVE)
[2021-01-07 14:19] LABS: Bacteria Urine 1+ /LPF; Squamous Epithelial Cell Urine 3+ /LPF; WBC Urine 0-2 /HPF (0-4)
[2021-01-07 14:34] VITALS: BP 122/63; PULSE 79; RESP 16; O2SAT 100
== END 2021-01-07 17:40 | disposition home or self-care (01) ==
PROVIDERS: Nurse Practitioner Family; Emergency Provider Emergency Medicine; PCP Nurse Practitioner
DX: K29.00 Acute gastritis without bleeding (principal); R10.9 Unspecified abdominal pain; R11.10 Vomiting, unspecified; R19.7 Diarrhea, unspecified; F17.200 Nicotine dependence, unspecified, uncomplicated; F12.90 Cannabis use, unspecified, uncomplicated; Z20.822 Contact with and (suspected) exposure to COVID-19; Z71.6 Tobacco abuse counseling; Z79.899 Other long term (current) drug therapy
CPT/HCPCS: 36415; 80048; 80076; 81001; 81025; 83735; 85025; 87635; 93005; 96365; 96375; 99285; J2060; J2405